=== PATIENT | male | born 1965 | race African-American/Black ===

== ENCOUNTER 2020-12-18 20:01 | Emergency (ER) | payer MEDICAID ==
[~2020-12-18] VITALS: Ht 177.8 cm; Wt 86.2 kg
[2020-12-18 20:28] VITALS: BP 110/79
[2020-12-19] MEDS ORDERED: ACETAMINOPHEN/CODEINE#3 (300/30mg) TAB PO ONE
[2020-12-19] MEDS ORDERED: ONDANSETRON ODT 4 MG TAB PO ONE
== END 2020-12-18 23:59 | disposition home or self-care (01) ==
LOC: ER 20:12
DX: R51.9 Headache, unspecified (principal); M47.814 Spondylosis without myelopathy or radiculopathy, thoracic region; E11.9 Type 2 diabetes mellitus without complications; Z87.442 Personal history of urinary calculi
CPT/HCPCS: 70450; 72070; 99284; Q0162

== ENCOUNTER 2022-03-10 01:06 | Emergency (ER) | payer MEDICAID ==
[~2022-03-10] VITALS: Ht 177.8 cm; Wt 86.4 kg
[2022-03-10 03:08] LABS: Albumin 4.1 g/dL (3.4-5.0); BUN/Creatinine Ratio 12.6; Calcium 9.2 mg/dL (8.5-10.1); Potassium 4.6 mmol/L (3.5-5.1)
[2022-03-10 03:10] LABS: Bilirubin, Total 0.3 mg/dL (0.2-1.0); Total Protein 8.1 g/dL (6.4-8.2)
[2022-03-10 03:12] LABS: Basophils # (auto) 0 10 ^3/uL (0-0.2); Basophils % (auto) 0.9 % (0.0-2.0); Eosinophils # (auto) 0.1 10 ^3/uL (0-0.8); Hematocrit 43.9 % (41.0-53.0); Hemoglobin 14.3 g/dL (13.5-17.5); Lymphocytes # (auto) 1.4 10 ^3/uL (0.4-5.4); Lymphocytes % (auto) 26.5 % (10.0-50.0); Mean Corpuscular Hemoglobin 30.3 pg (28.0-32.0); Mean Corpuscular Hgb Conc. 32.5 g/dL (32.0-36.0); Mean Corpuscular Volume 93.2 fL (80.0-100.0); Monocytes # (auto) 0.4 10 ^3/uL (0-1.3); Monocytes % (auto) 8.1 % (0.0-12.0); Neutrophils # (auto) 3.4 10 ^3/uL (1.6-8.6); Neutrophils % (auto) 63.5 % (37.0-80.0); Nucleated Red Blood Cells % 0.2 %; Red Blood Cells 4.71 10^6/uL (4.5-5.90); Red Cell Distribution Width 13.6 % (11.8-14.3); White Blood Cell 5.4 10^3/uL (4.4-10.8)
[2022-03-10] MEDS ORDERED: OXYCODONE W/ ACETAMINOPHEN 5/325MG TABLET PO ONE (05:00)
[2022-03-10] MEDS ORDERED: CIPR-173 PO (05:59)
[2022-03-10] MEDS ORDERED: PERCOT PO (05:59)
[2022-03-10] MEDS ORDERED: METR500T PO (05:59)
[2022-03-10] MEDS ORDERED: ONDA-144 PO (05:59)
[2022-03-10 06:13] VITALS: BP 105/65
== END 2022-03-10 06:16 | disposition home or self-care (01) ==
LOC: ER 01:06 → EDBD 01:06 → ER 06:16
DX: K57.30 Diverticulosis of large intestine without perforation or abscess without bleeding (principal); E11.9 Type 2 diabetes mellitus without complications; R07.89 Other chest pain
CPT/HCPCS: 36415; 71045; 74176; 80053; 83690; 84484; 85025; 93005